=== PATIENT | female | born 1930 | race Caucasian/White ===

== ENCOUNTER 2017-02-16 11:16 | Emergency (ER) | payer OTHER ==
[~2017-02-16] VITALS: Ht 149.9 cm; Wt 75.0 kg
[~2017-02-16 11:16] MED LIST: APIX5TAB PO; CARV12.530 PO; CELE200 PO; ESOM40CA PO; FURO40 PO; INSU100C4 SQ; KDUR20 PO; LEVO500T2 PO; LOSA50TA37 PO; OXYC-530 PO; SITA100 PO
[2017-02-16] MEDS ORDERED: CALC-26 PO (11:21)
[2017-02-16] MEDS ORDERED: AMLO-511 PO (11:21)
[2017-02-16] MEDS ORDERED: GLIP5 PO (11:21)
[2017-02-16] MEDS ORDERED: ALBUTEROL SULFATE 2.5 MG/0.5 ML NEB SOLUTION NEB ONE (11:30)
[2017-02-16] MEDS ORDERED: IPRATROPIUM BROMIDE 0.5 MG/2.5 ML NEB SOLUTION NEB ONE (11:30)
[2017-02-16] MEDS ORDERED: 0.9% SODIUM CHLORIDE 5 ML NEB SOLUTION NEB ONE (11:40)
[2017-02-16 12:29] LABS: BASOPHILS # (AUTO) 0.05 K/uL (0.00-0.20); BASOPHILS % (AUTO) 0.6 % (0.0-2.0); EOSINOPHILS # (AUTO) 0.02 K/uL (0.00-0.70); EOSINOPHILS % (AUTO) 0.27 % (1.0-6.0); HEMATOCRIT 37.4 % (36-46); HEMOGLOBIN 12.3 g/dL (12.0-16.0); LYMPHOCYTES # (AUTO) 1.7 K/uL (1.0-4.8); LYMPHOCYTES % (AUTO) 19.7 % (22.0-44.0); MEAN CORPUSCULAR HEMOGLOBIN 29.2 pg (26.0-34.0); MEAN CORPUSCULAR HGB CONC 32.8 G/dL (31.0-37.0); MEAN CORPUSCULAR VOLUME 89 fL (80-100); MONOCYTES # (AUTO) 0.7 K/uL (0.1-1.0); MONOCYTES % (AUTO) 7.8 % (2.0-9.0); NEUTROPHILS # (AUTO) 6.3 K/uL (1.8-7.7); NEUTROPHILS % (AUTO) 71.7 % (40.0-70.0); PLATELET COUNT (AUTO) 214 K/uL (150-450); RED BLOOD CELL COUNT(AUTO) 4.19 MIL/uL (4.00-5.20); RED CELL DISTRIBUTION WIDTH 15.4 % (11.5-14.5); WHITE BLOOD COUNT (AUTO) 8.8 K/uL (4.5-11.0)
[2017-02-16 12:47] LABS: CALCIUM, TOTAL 9.4 mg/dL (8.8-10.5); CREATININE 0.98 mg/dL (0.60-1.30); POTASSIUM 4.7 mmol/L (3.5-5.1)
[2017-02-16 12:51] LABS: ALBUMIN 3.6 g/dL (3.4-5.0); BILIRUBIN,TOTAL 0.7 mg/dL (0.1-1.0); TOTAL PROTEIN, SERUM 8.1 g/dL (6.4-8.2)
[2017-02-16] MEDS ORDERED: DILTIAZEM HCL 5 MG/ML 5 ML VIAL IVP ONE ×2 (13:00→14:45)
[2017-02-16] MEDS ORDERED: FUROSEMIDE 40 MG/4 ML VIAL IVP ONE (13:00)
[2017-02-16] MEDS ORDERED: ASPIRIN 81 MG CHEWABLE TABLET PO ONE (13:00)
[2017-02-16 13:45] LABS: APPEARANCE,URINE CLOUDY (CLEAR); GLUCOSE, URINE (UA) NEGATIVE (NEGATIVE); KETONES,URINE NEGATIVE (NEGATIVE); LEUKOCYTE ESTERASE ,URINE MODERATE (NEGATIVE); OCCULT BLOOD,URINE NEGATIVE (NEGATIVE); PROTEIN,URINE NEGATIVE (NEGATIVE)
[2017-02-16 14:00] LABS: SQUAMOUS EPITHELIAL CELL,UR Moderate /LPF (None Seen)
[2017-02-16] MEDS ORDERED: CIPROFLOXACIN HCL 250 MG TABLET PO ONE (16:00)
[2017-02-16] MEDS ORDERED: LABETALOL HCL 5 MG/ML 20 ML VIAL IVP ONE (18:00)
[2017-02-16 18:05] VITALS: BP 128/77
== END 2017-02-16 18:28 | disposition short-term general hospital (02) ==
LOC: EMS 11:17
DX: I11.0 Hypertensive heart disease with heart failure (principal); I50.9 Heart failure, unspecified; J45.909 Unspecified asthma, uncomplicated; E11.9 Type 2 diabetes mellitus without complications; K21.9 Gastro-esophageal reflux disease without esophagitis; E78.00 Pure hypercholesterolemia, unspecified; E03.9 Hypothyroidism, unspecified; Z88.1 Allergy status to other antibiotic agents; Z88.0 Allergy status to penicillin
CPT/HCPCS: 36415; 71010; 80053; 81001; 83690; 83880; 84484; 85025; 87077; 87086; 87186; 93005; 94060; 94640; 96374; 96375; 96376; 99285; J1940; J3490 ×2